=== PATIENT | female | born 1990 | race Caucasian/White ===

== ENCOUNTER 2021-02-11 09:12 | Outpatient (REF) | payer MEDICAID, SELFPAY ==
--- NOTE | ~2021-02-11 | XR_ITS ---
EXAMINATION: XR BILATERAL HAND/WRIST CLINICAL INFORMATION: Pain and bilateral hand. COMPARISON: None. TECHNIQUE: 4 views each hand. FINDINGS: RIGHT HAND: There is no visible acute fracture, dislocation or subluxation seen. The soft tissues are normal. The PIP, DIP and MCP joint space is normal. The soft tissues are normal. LEFT HAND: There is no visible acute fracture, dislocation or subluxation. The PIP, DIP and MCP joint spaces are normal. The soft tissues are normal. XR/XR hand wrist LT IMPRESSION: Unremarkable bilateral hand exam.
--- NOTE | ~2021-02-11 | XR_ITS ---
EXAMINATION: XR BILATERAL HAND/WRIST CLINICAL INFORMATION: Pain and bilateral hand. COMPARISON: None. TECHNIQUE: 4 views each hand. FINDINGS: RIGHT HAND: There is no visible acute fracture, dislocation or subluxation seen. The soft tissues are normal. The PIP, DIP and MCP joint space is normal. The soft tissues are normal. LEFT HAND: There is no visible acute fracture, dislocation or subluxation. The PIP, DIP and MCP joint spaces are normal. The soft tissues are normal. XR/XR hand wrist RT IMPRESSION: Unremarkable bilateral hand exam.
== END 2021-02-11 09:13 | disposition home or self-care (01) ==
LOC: HO.XRAY 09:12
PROVIDERS: PCP Nurse Practitioner Primary Care; Visit Provider Nurse Practitioner Primary Care
DX: M79.642 Pain in left hand (principal); M79.641 Pain in right hand
CPT/HCPCS: 73110; 73130

== ENCOUNTER 2021-10-01 07:12 | Outpatient (REF) | payer MEDICAID, SELFPAY ==
--- NOTE | ~2021-10-01 | XR_ITS ---
EXAMINATION: XR HAND, BILATERAL CLINICAL INFORMATION: Bilateral hand pain. COMPARISON: None TECHNIQUE: 3 views of right hand and 3 views of left hand. FINDINGS: Right Hand: There is no visible fracture, dislocation or subluxation. The PIP, DIP and MCP joint spaces are normal. The soft tissues are normal. Left Hand: The joint spaces are maintained normal. No fracture, dislocation or subluxation seen. The soft tissues are normal. XR/XR hand RT min 3V IMPRESSION: Unremarkable bilateral hand exam.
--- NOTE | ~2021-10-01 | XR_ITS ---
EXAMINATION: XR HAND, BILATERAL CLINICAL INFORMATION: Bilateral hand pain. COMPARISON: None TECHNIQUE: 3 views of right hand and 3 views of left hand. FINDINGS: Right Hand: There is no visible fracture, dislocation or subluxation. The PIP, DIP and MCP joint spaces are normal. The soft tissues are normal. Left Hand: The joint spaces are maintained normal. No fracture, dislocation or subluxation seen. The soft tissues are normal. XR/XR hand LT min 3V IMPRESSION: Unremarkable bilateral hand exam.
== END 2021-10-01 07:13 | disposition home or self-care (01) ==
LOC: HO.HOSX 07:12
PROVIDERS: Visit Provider Physician Assistant
DX: G56.03 Carpal tunnel syndrome, bilateral upper limbs (principal)
CPT/HCPCS: 73130; 99202

== ENCOUNTER 2021-10-09 08:38 | Outpatient (REF) | payer MEDICAID, SELFPAY ==
--- NOTE | 2021-10-09 08:48 | EMG_ITS ---
This is a woman with bilateral hand pain and numbness. PHYSICAL EXAMINATION: Neurological examination is normal. Deep tendon reflexes are symmetrical 2+. No Tinel sign. IMPRESSION: Rule out carpal tunnel syndrome. Nerve conduction EMG study: Normal electrodiagnostic study of both upper extremities with no evidence of carpal tunnel syndrome or nerve entrapment. Normal EMG of the left C5-T1 innervated muscles. MD BIANCA Escoto/BARBIE / [id number]
== END 2021-10-09 08:39 | disposition home or self-care (01) ==
LOC: HO.NEURO 08:38
PROVIDERS: Visit Provider Physician Assistant
DX: G56.03 Carpal tunnel syndrome, bilateral upper limbs (principal)
CPT/HCPCS: 95885; 95913

== ENCOUNTER → 2021-11-12 14:22 | Outpatient (BNVA) | payer MEDICAID, SELFPAY | PROVIDERS: PCP Nurse Practitioner Primary Care; Visit Provider Orthopaedic Surgery | DX: M79.641 Pain in right hand (principal); M79.642 Pain in left hand; M79.632 Pain in left forearm; M79.631 Pain in right forearm | CPT/HCPCS: 99212 ==

== ENCOUNTER 2022-05-13 15:40 | Outpatient (REF) | payer MEDICAID, SELFPAY ==
--- NOTE | ~2022-05-13 | US_ITS ---
EXAMINATION: US PELVIS CLINICAL INFORMATION: Dysmenorrhea COMPARISON: None TECHNIQUE: Ultrasound of the pelvis is performed using both transabdominal and transvaginal transducers along with Doppler. Transvaginal imaging is performed due to inadequate visualization transabdominally. FINDINGS: The uterus is heterogeneous and measures 8.0 x 3.9 x 5.9 cm. No discrete fibroids. Nabothian cysts present. Endometrial thickness is 0.5 cm. Visualization of ovaries limited. Right ovary seen only on transabdominal ultrasound images and left ovary better visualized on transabdominal ultrasound images. Right ovary measures 2.8 x 1.4 x 2.0 cm, volume 4.1 mL. Left ovary measures 2.8 x 2.1 x 1.7 cm, volume 5.2 mL. Bilateral ovaries are grossly unremarkable. US/US pelvic and transvaginal IMPRESSION: 1. No discrete fibroids. 2. Endometrial thickness 0.5 cm. 3. No significant free fluid. 4. Bilateral ovaries are grossly unremarkable, although visualization is limited. The heart
== END 2022-05-13 15:41 | disposition home or self-care (01) ==
LOC: HO.US 15:40
PROVIDERS: Visit Provider Advanced Practice Midwife
DX: N94.10 Unspecified dyspareunia (principal); N94.6 Dysmenorrhea, unspecified
CPT/HCPCS: 76830; 76856

== ENCOUNTER 2022-10-01 09:19 | Outpatient (REF) | payer MEDICAID, SELFPAY ==
[2022-10-04 03:48] LABS: HPV mRNA E6/E7 rflx Not Detected (Not Detected)
== END 2022-10-01 09:20 | disposition home or self-care (01) ==
LOC: HO.LNP 09:19
PROVIDERS: PCP Nurse Practitioner Primary Care; Visit Provider Obstetrics & Gynecology
DX: Z12.4 Encounter for screening for malignant neoplasm of cervix (principal); Z11.51 Encounter for screening for human papillomavirus (HPV); N93.9 Abnormal uterine and vaginal bleeding, unspecified; N93.0 Postcoital and contact bleeding
CPT/HCPCS: 0353U; 84443; 84702; 85027; 87624; 88142; 99202

== ENCOUNTER 2022-10-01 09:59 | Outpatient (REF) | payer MEDICAID, SELFPAY ==
[2022-10-01 13:05] LABS: Hematocrit 39.1 % (37.0-47.0); Hemoglobin 12.9 g/dl (12.0-16.0); Mean Corpuscular Hemoglobin 28.4 pg (27.0-33.0); Mean Corpuscular Volume 86.1 fL (80.0-98.0); Mean Platelet Volume 11.6 fL (9.4-12.3); Platelet Count 270 X10*3/uL (160-400); Red Blood Count 4.54 X10*6/uL (4.20-5.50); Red Cell Distribution Width 12.3 % (11.0-16.0); White Blood Count 4.9 X10*3/uL (4.8-10.8)
[2022-10-01 13:49] LABS: HCG Quantitative < 2 mIU/mL; TSH reflex Free T4 1.21 uIU/mL (0.32-4.0)
[2022-10-01 16:23] LABS: CT PCR NOT DETECTED (Not Detect.); NG PCR NOT DETECTED (Not Detect.)
== END 2022-10-01 10:00 | disposition home or self-care (01) ==
LOC: HO.LAB 09:59
PROVIDERS: PCP Nurse Practitioner Primary Care; Visit Provider Obstetrics & Gynecology
DX: Z11.3 Encounter for screening for infections with a predominantly sexual mode of transmission (principal); N93.9 Abnormal uterine and vaginal bleeding, unspecified
CPT/HCPCS: 0353U; 84443; 84702; 85027

== ENCOUNTER 2022-12-18 15:15 | Outpatient (REF) | payer MEDICAID, SELFPAY | END 2022-12-18 15:16 | disposition home or self-care (01) | LOC: HO.LNP 15:15 | PROVIDERS: PCP Nurse Practitioner Primary Care; Visit Provider Obstetrics & Gynecology | DX: N93.9 Abnormal uterine and vaginal bleeding, unspecified (principal); N93.0 Postcoital and contact bleeding | CPT/HCPCS: 58100; 88305 ==

== ENCOUNTER → 2022-12-30 07:57 | Outpatient (BNVA) | payer MEDICAID, SELFPAY | PROVIDERS: PCP Nurse Practitioner Primary Care; Visit Provider Obstetrics & Gynecology | DX: N93.9 Abnormal uterine and vaginal bleeding, unspecified (principal) | CPT/HCPCS: 99212 ==

== ENCOUNTER 2023-01-16 07:11 | Day surgery (SDC) | payer MEDICAID, SELFPAY ==
[2023-01-13 17:14] VITALS: BMI 25.6
--- NOTE | 2023-01-15 08:55 | P.CONAN_ITS ---
Documented by User: Vanessa Mills NP 01/15/23 08:55 HPI - Anesthesia Eval Consult details Narrative: 32yo F for D&C Hysteroscopy,Possible Myomectomy/Polypectomy PMFSH Active Problems Active Problems: All Active Problems (Updated 12/30/22 @ 08:22 by Ivan Eubanks MD) Postcoital bleeding (Acute) Abnormal uterine bleeding (Acute) Pain in both forearms (Acute) Bilateral hand pain (Acute) Bilateral carpal tunnel syndrome (Acute) Past Medical History Medical History Asthma Family History Family History Mother Diabetes HTN (hypertension) Uterus cancer Father HTN (hypertension) Other Lupus Surgical History Surgical History Hx of breast augmentation Hx of tubal ligation Social History Social History Household Members: Significant Other and Children Housing: House Alcohol intake: current Alcohol intake frequency: holidays/special occasions only Patient Tobacco Use Status: Never used Tobacco Use of substances other than those prescribed or required for medical reasons: No Are you DNR?: No Advance Directives: No Advance Directives Information Provided: Yes Current occupational status: employed Current occupation: school cafe/rt hand Sexual orientation: Straight/Heterosexual Gender identity: Female Meds Allergies Allergy/AdvReac Type Severity Reaction Status Date / Time No Known Allergies Allergy Unverified 12/30/22 07:59 [No Known Allergies*] Home Medications Medication Instructions Recorded Confirmed Last Taken Type No Known Home Meds 10/01/21 10/01/21 Unknown History Exam Exam Date and Time: January 15, 2023 0855 Height,Weight and Vital Signs: Height 5 ft 6 in Weight 71.979 kg Assessment and Plan Assessment Anesthesia Assessment: Chart Reviewed Documented by User: Cezar Aguilar MD 01/16/23 07:46 [facility] Past Medical History Medical History Asthma Family History Family History Mother Diabetes HTN (hypertension) Uterus cancer Father HTN (hypertension) Other Lupus Family history of problems with anesthesia: No Surgical History Surgical History Hx of breast augmentation Hx of tubal ligation History of Problems with Anesthesia: No Social History Social History Household Members: Significant Other and Children Housing: House Alcohol intake: current Alcohol intake frequency: holidays/special occasions only Patient Tobacco Use Status: Never used Tobacco Use of substances other than those prescribed or required for medical reasons: No Are you DNR?: No Advance Directives: No Advance Directives Information Provided: Yes Current occupational status: employed Current occupation: school cafe/rt hand Sexual orientation: Straight/Heterosexual Gender identity: Female Meds Allergies Allergy/AdvReac Type Severity Reaction Status Date / Time No Known Allergies Allergy Unverified 12/30/22 07:59 [No Known Allergies*] Home Medications Medication Instructions Recorded Confirmed Last Taken Type No Known Home Meds 10/01/21 10/01/21 Unknown History Exam Airway Mallampati Class: III TM Dist: >3cm Neck ROM: Full Assessment and Plan Assessment Anesthesia Assessment: Anesthesia Plan Discussed Final Anesthetic Review Family History of Problems with Anesthesia: No History of Problems with Anesthesia: No NPO: Yes ASA Class: I Final Preanesthetic Review: No Changes in Pt Med Stat, Meds/Allgs Chart Reviewed, Consent Obtained/Reviewed and Anes Risks/Benef Reviewed Patient Risk: Low Procedure Risk: Low Anesthetic Plan Anesthetic Plan: GA Disposition: Standard PACU
[2023-01-16] VITALS (7 sets, daily range): BP systolic 119–125; BP diastolic 69–76; PULSE 64–97; RESP 16; TEMP 36.1–36.4; O2SAT 97–100
--- NOTE | 2023-01-16 07:33 | MHC.SHP ---
Pre-Procedural Eval Section A Date of Service: 01/16/23 The patient is an INPATIENT: No Changes since office visit: No Cold of Flu in the past 2 weeks, No New Medical Problems, No Changes in Medication and No Patient answered all questions The History & Physical has been completed within 30 days and I have reviewed it.: Yes Section B Chief Complaint: Abnormal uterine and vaginal bleeding, unspecified Allergies: Allergies Allergy/AdvReac Type Severity Reaction Status Date / Time No Known Allergies Allergy Unverified 12/30/22 07:59 [No Known Allergies*] Plan Diagnosis/Plan: Unchanged I have reviewed the history and physical and performed a pertinent physical examination on my patient. No changes have occurred unless specified. Time Spent With Patient Time: Total time managing care of this patient today ____ minutes.
[2023-01-16 07:36] LABS: UPreg QC Valid YES; Urine Pregnancy NEGATIVE (NEGATIVE)
[2023-01-16] MEDS: Lactated Ringers 1,000 ML 100 ML IVCONT (07:37)
--- NOTE | 2023-01-16 08:47 | P.CONAN_ITS ---
FORM[facility], [facility]–1983 Active Problems Active Problems: All Active Problems (Updated 12/30/22 @ 08:22 by Ivan Eubanks MD) Postcoital bleeding (Acute) Abnormal uterine bleeding (Acute) Pain in both forearms (Acute) Bilateral hand pain (Acute) Bilateral carpal tunnel syndrome (Acute) Past Medical History Medical History Asthma Family History Family History Mother Diabetes HTN (hypertension) Uterus cancer Father HTN (hypertension) Other Lupus Family history of problems with anesthesia: No Surgical History Surgical History Hx of breast augmentation Hx of tubal ligation History of Problems with Anesthesia: No Social History Social History Household Members: Significant Other and Children Housing: House Alcohol intake: current Alcohol intake frequency: holidays/special occasions only Patient Tobacco Use Status: Never used Tobacco Use of substances other than those prescribed or required for medical reasons: No Are you DNR?: No Advance Directives: No Advance Directives Information Provided: Yes Current occupational status: employed Current occupation: school cafe/rt hand Sexual orientation: Straight/Heterosexual Gender identity: Female Meds Allergies Allergy/AdvReac Type Severity Reaction Status Date / Time No Known Allergies Allergy Unverified 12/30/22 07:59 [No Known Allergies*] Active Medications: Current Medications Albuterol Sulfate (Albuterol Sulfate (0.083%) 2.5 Mg/3 Ml Vial.Neb) 2.5 mg INHALE ONCE PRN PRN Reason: Shortness of Breath/Wheezing Lactated Ringer's (Lr) 1,000 mls @ 100 mls/hr IVCONT .Q10H ABDIEL Last Admin: 01/16/23 07:37 Dose: 100 mls/hr Home Medications Medication Instructions Recorded Confirmed Last Taken Type No Known Home Meds 10/01/21 10/01/21 Unknown History Exam Exam Date and Time: January 16, 2023 0847 Height,Weight and Vital Signs: Height 5 ft 6 in Weight 71.979 kg Last Vital Signs Temp 97.6 F 01/16/23 07:29 Pulse 97 01/16/23 07:29 Resp 16 01/16/23 07:29 BP 125/72 01/16/23 07:29 Pulse Ox 97 01/16/23 07:29 O2 Del Method Room Air 01/16/23 07:29 Pertinent Lab Results Pertinent Lab Results: Laboratory Tests 01/16/23 07:15 Urine Test NEGATIVE Airway Mallampati Class: III Assessment and Plan Final Anesthetic Review Family History of Problems with Anesthesia: No History of Problems with Anesthesia: No
--- NOTE | 2023-01-16 08:53 | P.BOP_ITS ---
Brief Operative Note Date of Service: 01/16/23 Pre-op diagnosis: Abnormal uterine bleeding, endometrial polyp by pathology Post-op diagnosis: same (Normal uterine cavity with no evidence of pathology) Procedure: Hysteroscopy D&C, Polypectomy Surgeon: Ivan Eubanks MD Anesthesia: GLMA Was an Marketing Programs Manager used for this Procedure?: No Estimated blood loss (mL): 0 Pathology: other (Endometrial Scrapping. ) Condition: stable Disposition: PACU
--- NOTE | 2023-01-16 08:54 | W.PM.OPN ---
Operative Note Operative Note Date of Service: 01/16/23 Narrative: Preop Diagnosis: Abnormal uterine bleeding, endometrial polyp on pathology Operation: Diagnostic Hysteroscopy, Dilataion & Curettage Post Op Diagnosis: Normal endometrial and endocervical cavity, no evidence of pathology QBL: Minimal Anesthesia: GLMA Surgeon: Ivan Eubanks MD Refrigerator Car Icer: None Complication: None Pathology: Endometrial Scrapings Procedure: The patient was put in the dorsal lithotomy position, scrubbed, and draped in the usual manner. A sterile speculum was inserted in the patient's vagina. The anterior lip of the cervix was grasped with a single tooth tenaculum. The cervix was dilated up to 5 mm, then the scope was inserted in the patient's uterus. Inspection revealed normal endocervical & endometrial cavity with no evidence of pathology. The scope was taken out of the uterine cavity , then sharp curetting was carried on with no complications. At the end of the procedure, all instruments were taken out of the patient uterine and vaginal cavity. The single tooth tenaculum was removed and homeostasis was assured using pressure. The patient tolerated the procedure well and was transferred to the PACU in a stable condition.
[2023-01-16] MEDS: oxyCODONE HCl Immed Release 5 MG TABLET PO (09:41)
[2023-01-16] MEDS: Acetaminophen 325 MG TABLET 650 MG PO (09:41)
== END 2023-01-16 10:45 | disposition home or self-care (01) ==
PROVIDERS: PCP Nurse Practitioner Primary Care; Visit Provider Obstetrics & Gynecology
PROC: 0UDB8ZZ Extraction of Endometrium, Via Natural or Artificial Opening Endoscopic (ICD-10-PCS; CPT 58558; principal; 2023-01-16 08:30)
DX: N93.9 Abnormal uterine and vaginal bleeding, unspecified (principal); J45.909 Unspecified asthma, uncomplicated; Z98.51 Tubal ligation status
CPT/HCPCS: 58558; 81025; 88305; J1100; J2250; J2405; J3010

== ENCOUNTER 2023-03-30 12:53 | Outpatient (AMB) | payer MEDICAID, SELFPAY ==
--- NOTE | 2023-03-30 12:58 | A.OFFVIS_ITS ---
Intake Vital Signs 03/30/23 12:59 Height 5 ft 6 in Weight 160 lb BMI 25.8 BP 122/74 Intake Visit Reasons: post op Test And Balance Engineer Required: Yes Test And Balance Engineer Language: Electric Lineman Name: Jossie MORA Allergies No Known Allergies [No Known Allergies*] Allergy (Verified 03/30/23 12:59) Is last menstrual period known: Yes Last menstrual period: 03/30/23 Post menopausal: No HPI HPI Comments History of Present Illness Details The patient is presenting post hysteroscopy D&C no complaints minimal vaginal bleeding no feverishness chills or abdominal pain. The pathology showed the following: Endometrium, curettage: - Inactive endometrium with patchy breakdown; no atypia or hyperplasia identified. - Few fragments of endocervical and squamous epithelium within normal limits. The following workup was done.: H&H= 12.9/39.1 TSH, hCG, GC and chlamydia were negative. Co testing was done was negative. Pelvic ultrasound showed the following: 'IMPRESSION: ? 1. No discrete fibroids. ? 2. Endometrial thickness 0.5 cm. ? 3. No significant free fluid. ? 4. Bilateral ovaries are grossly unremarkable, although visualization is limited. [facility] Medical History Asthma Surgical History Hx of breast augmentation Hx of tubal ligation Family History Mother Diabetes HTN (hypertension) Uterus cancer Father HTN (hypertension) Other Lupus Social History Household Members: Significant Other and Children Housing: House Alcohol intake: current Alcohol intake frequency: holidays/special occasions only Patient Tobacco Use Status: Never used Tobacco Current occupational status: employed Current occupation: school cafe/rt hand Sexual orientation: Straight/Heterosexual Gender identity: Female Female Reproductive History Menstrual Age of Menarche: 9 Date of last menstrual period: 03/30/23 control method: permanent sterilization Date of last pap smear: 10/01/22 (negative) Review of Systems Const All systems reviewed & are unremarkable except as noted in HPI and below Reports as per HPI and Reports no additional complaints GI Reports no additional complaints Reports no additional complaints Physical Exam Vital Signs: Last Vital Signs BP 122/74 03/30/23 12:59 BMI result Body Mass Index 25.8 Assessment & Plan Assessment & Plan (1) Abnormal uterine bleeding: Comment: With postcoital bleed Code(s): N93.9 - Abnormal uterine and vaginal bleeding, unspecified Plan: Discussed with the patient the results of the work up done and options of treatment includingBCP's, Mirena IUD, endometrial ablation and cyclic Provera. All pros, cons, risks and benefits if each option was discussed with the patient and the patient decided to think about it and get back to us. All questions answered the patient verbalized understanding. Coding Level of Care Code Est Pt Level 3 (23548) Diagnoses Abnormal uterine bleeding N93.9
[2023-03-30 12:59] VITALS: BP 122/74; BMI 25.8
== END 2023-03-30 13:32 | disposition home or self-care (01) ==
LOC: HO.HWS 12:53
PROVIDERS: PCP Nurse Practitioner Primary Care; Visit Provider Obstetrics & Gynecology
DX: N93.9 Abnormal uterine and vaginal bleeding, unspecified (principal)
CPT/HCPCS: 99213

== ENCOUNTER → 2023-03-30 12:53 | Outpatient (BNVA) | payer MEDICAID, SELFPAY | PROVIDERS: PCP Nurse Practitioner Primary Care; Visit Provider Obstetrics & Gynecology | DX: N93.9 Abnormal uterine and vaginal bleeding, unspecified (principal) | CPT/HCPCS: 99212 ==

== ENCOUNTER 2023-11-03 13:41 | Outpatient (AMB) | payer MEDICAID, SELFPAY ==
--- NOTE | 2023-11-03 13:48 | A.OFFVIS_ITS ---
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 No complaints. Last Pap/HPV was negative in 10/09 [facility] Medical History Asthma Surgical History Hx of cosmetic surgery Hx of tubal ligation Hx of breast augmentation Family History Mother Diabetes HTN (hypertension) Uterus cancer Father HTN (hypertension) Other Lupus Social History Household Members: Significant Other and Children Housing: House Alcohol intake: current Alcohol intake frequency: holidays/special occasions only Patient Tobacco Use Status: Never used Tobacco Current occupational status: employed Current occupation: school cafe/rt hand Sexual orientation: Straight/Heterosexual Gender identity: Female Female Reproductive History Menstrual Age of Menarche: 9 Duration of menses: other Date of last menstrual period: 10/06/23 control method: permanent sterilization Total pregnancies: 2 Full term: 2 Number of Living Children: 2 Date of last pap smear: 10/01/22 (negative) Review of Systems Const All systems reviewed & are unremarkable except as noted in HPI and below Card Reports as per HPI Resp Reports as per HPI GI Reports as per HPI and Reports no additional complaints Reports as per HPI Physical Exam Vital Signs: Last Vital Signs BP 130/74 11/03/23 13:50 BMI result Body Mass Index 26.1 Const General: cooperative, healthy appearing and comfortable Chest Chest palpation & inspection: normal inspection of the chest and normal palpation of entire chest wall Breast/axilla inspection: normal inspection of the breasts and normal inspection of the axillae Breast/axilla palpation: normal palpation of the breasts, normal palpation of the axillae and no axillary lymphadenopathy Resp Effort & Inspection: normal respiratory effort Auscultation: clear to auscultation bilaterally Percussion: percussion normal Cardio Palpation: normal PMI Rate: regular rate Rhythm: regular rhythm Heart sounds: no murmurs and no rubs Peripheral pulses: Peripheral pulses 2+ throughout GI Inspection: Yes normal to inspection Palpation (GI): Soft to palpation, nontender, no guarding, not rigid and No hepatosplenomegaly present Percussion: Yes normal to percussion Auscultation: normal bowel sounds Rectal Exam - Female: deferred General: Yes bladder normal to palpation External Female Exam: No lesion Speculum Exam - Vagina: normal appearance of the vagina, normal palpation, normal vaginal discharge and not erythematous Speculum Exam - Cervix: normal appearance of the cervix and normal palpation Bimanual exam- vagina & uterus: normal bimanual exam, normal palpation, uterine size normal, bladder normal to palpation, consistency normal and normal palpation Bimanual Exam- Adnexa, other: normal adnexae, no masses and no tenderness Assessment & Plan Assessment & Plan (1) Well woman exam: Code(s): Z01.419 - Encounter for gynecological examination (general) (routine) without abnormal findings Plan: Cotesting not indicated this year. Counseled the patient about the recommended dietary allowance of 1000 mg of Calcium & 600 IU of vitamin D. The patient was instructed to perform monthly self-breast exams and to schedule an annual exam in a year; All questions answered and the patient verbalized understanding. Instructed the patient to schedule annual exam in a year Coding Level of Care Code Est Pt Prev Care 18-39y(93026) Diagnoses Well woman exam Z01.419
[2023-11-03 13:50] VITALS: BP 130/74; BMI 26.1
== END 2023-11-03 14:15 | disposition home or self-care (01) ==
PROVIDERS: PCP Nurse Practitioner Primary Care; Visit Provider Obstetrics & Gynecology
DX: Z01.419 Encounter for gynecological examination (general) (routine) without abnormal findings (principal)
CPT/HCPCS: 99395

== ENCOUNTER → 2023-11-03 13:41 | Outpatient (BNVA) | payer MEDICAID, SELFPAY | PROVIDERS: PCP Nurse Practitioner Primary Care; Visit Provider Obstetrics & Gynecology | DX: Z01.419 Encounter for gynecological examination (general) (routine) without abnormal findings (principal) | CPT/HCPCS: 99395 ==

== ENCOUNTER 2024-10-26 08:07 | Outpatient (REF) | payer MEDICAID, SELFPAY ==
--- OUTSIDE RECORDS SUMMARY | 2024-10-26 08:12 | XMS_ITS | Clinical Summary ---
Author Organization [employer] Address [address] [facility] 7t [place] [address] Care Team Providers Care Tower Technician Name Role Phone Alberto Carrasco Primary Care Provider [phone] Allergies No known active allergies Medications fluticasone (Flonase) 50 MCG/ACT nasal sprayIndications: Cough in adult patient,Laryngiti s SPRAY 1 SPRAY INTO EACH NOSTRIL IN THE MORNING 48 mL 3 Active albuterol 108 (90 Base) MCG/ACT inhalerIndication s:Mild intermittent asthma with exacerbation Inhale 2 puffs every 6 (six) hours if needed for wheezing. 18 g 1 4 06/10/20 25 Active Active Problems Problem Noted Date Diagnosed Date Mild intermittent asthma with exacerbation 06/10 Abnormal uterine bleeding 05/19/2023 Bilateral carpal tunnel syndrome 05/19/2023 Overview (03/25/2024): No bony abnormalities on B/L hand XR 02/13/21 Negative EMG Pain in both forearms 05/19/2023 Postcoital bleeding 05/19/2023 Encounters Date Type Department Care Team Description 10/14/2024 2:30 PM EST Office Visit [facility] [address] [place] [address] Alberto Carrasco ANP Irregular menses (Primary Dx); Dietary counseling; Exercise counseling; Mild intermittent asthma with exacerbation; Healthcare maintenance 10/14/2024 Telephone [facility] [address] [place] [address] Alberto Carrasco ANP 10/14/2024 Travel 10/06/2024 9:15 AM EST Office Visit [facility] [address] [place] [address] Acosta Cashn, OD Regular astigmatism of both eyes (Primary Dx) 09/30/2024 Patient Outreach [facility] [address] [place] [address] Alberto Carrasco ANP Pre-visit Planning (Pre-visit planning - LVM ) 08/30/2024 3:00 PM EST Office Visit [facility] [address] [place] [address] Acosta Cashn, OD White without pressure of peripheral retina of both eyes (Primary Dx); Meibomian gland dysfunction; Regular astigmatism of both eyes 08/30/2024 Travel 08/15/2024 Telephone [facility] [address] [place] [address] Katey Kitchen [place] September recall from Last 3 Months Immunizations Name Administration Dates Next Due Influenza injectable quadriv alent IIV4 with preservative 06/09/2018 Moderna Covid-19 Vaccine 12+ 01/28/2021,01/01/20 21 Tdap 10/14/2024 Family History Medical History Relation Name Comments Hypertension Father Arthritis Mother Diabetes Mother Hypertension Mother Psoriasis Mother Uterine cancer Mother Relation Name Status Comments Father Mother Social History Tobacco Use Types Packs/Day Years Used Date Smoking Tobacco: Never Smokeless Tobacco: Never Tobacco Cessation:Counseling Given: Not Answered Depression Answer Date Recorded Patient Health Questionnaire-9 Score 20 10/14/2024 Patient Health Questionnaire-9 Score 20 10/14/2024 Last PHQ-9: Questionnaire Data Not on file 0 10/14/2024 Housing Stability Answer Date Recorded What is your housing situation today? I have quique stern 03/08/[address] you li ve. Do you have problems with any of the following? None of the above 03/08/2024 Food Insecurity Answer Date Recorded Within the past 12 months, y ou worried that your food would run out before you got money to buy more: Never True 03/08/2024 Within the past 12 months,th e food you bought just didn't last and you didn't have enough money to get more: Never True Transportation Answer Date Recorded In the past 12 months, has l ack of transportation kept you from medical appts, meetings, work or from getting things needed for daily living? No 03/08/2024 Utilities Answer Date Recorded In the past 12 months, has t he electric, gas, oil or water company threatened to shut off services in your home? No 03/08/2024 Depression Answer Date Recorded Patient Health Questionnaire-2 Score 5 10/14/2024 Internet Access Answer Date Recorded Internet Access Q1 Yes 04/18/2024 Internet Access Q2 Not on file 04/18/2024 Comments Unknown Sex and Gender Information Value Date Recorded Sex Assigned at Female 06/16/2022 10:33 AM EDT Legal Sex Female 10:33 AM EDT Gender Identity Female 06/16/2022 10:33 AM EDT Sexual Orientation Straight 06/16/2022 10 :33 AM EDT Last Filed Vital Signs Vital Sign Reading Time Taken Comments Blood Pressure 135/81 10/14/2024 2:51 PM EST Pulse 97 10/14/2024 2:51 PM EST Temperature 36.2 ??C (97.2 ??F) 10/14/2024 2:51 PM ES T Respiratory Rate 22 10/14/2024 2:51 PM EST Oxygen Saturation 99% 06/10/2024 11: 21 AM EDT Inhaled Oxygen Concentration - - Weight 80.6 kg (177 lb 12.8 oz) 10/14/2024 2:51 PM EST Height 167.6 cm (5' 6 ) 07/07/2024 11:3 8 AM EST Body Mass Index 28.7 07/07/2024 11:38 AM EST Plan of Treatment Upcoming Encounters Date Type Department Care Team (Late st Contact Info) Description 12/19/2024 11:00 AM EDT Telemedicine [facility] [address], [place] [phone] Alberto Carrasco ANP [address] [place] [address] Health Maintenance Due Date Last Done Comments Family Planning (PISQ) 2005 Hepatitis B Vaccines (1 of 3 - 19+ 3-dose series) 2009 Pneumococcal Vaccine: Pediatrics (0 to 5 Years) and At-Risk Patients (6 to 49) Years) (1 of 2 - PCV) 2009 Dental Oral Exam 06/05/2018 12/03/2017 Dental Prophylaxis 01/26/2019 07/27/2018 Dental X-Ray: Full Mouth 12/04/2020 12/03/2017 Dental X-Ray: Bitewings 05/16/2021 05/15/20 20, 12/03/2017 COVID-19 Vaccine (3 - 2023-2 5 season) 2024 01/28/2021, 12/31/2020 Influenza Vaccine (#1) 2024 06/09/2018 SDOH Screening 03/08/2025 03/08/2024 Depression Monitoring (PHQ-9) 04/13/2025, 10/14/2024 Pap Smear 10/01/2025 10/01/2022, 03/13/2021, 03/13/2021 Alcohol/Substance Use Screening 10/14/2025 10/14/2024 Depression Screening 10/14/2025 10/14/2024, 10/14/2024 Tobacco Screening 10/14/2025 10/14/2024 Cervical Cancer Screening 10/01/2027 HPV/Cotest 10/01/2027 10/01/2022, 03/13/2021 DTaP/Tdap/Td Vaccines (2 - T d or Tdap) 10/14/2034 10/14/2024 Zoster Vaccines (1 of 2) 2040 RSV Patients and Patients Aged 60 years or older (1 - 1-dose 75+ series) 2065 Hepatitis C Screening Completed 01/29/2021 HIV Screening Completed 11/20/2021, 01/29/2021 HIB Vaccines Aged Out No longer eligi ble based on patient's age to complete this topic HPV Vaccines Aged Out No longer eligi ble based on patient's age to complete this topic Hepatitis A Vaccines Aged Out No long er eligible based on patient's age to complete this topic IPV Vaccines Aged Out No longer eligi ble based on patient's age to complete this topic Meningococcal Vaccine Aged Out No terrell nolan eligible based on patient's age to complete this topic RSV under 20 months Aged Out No longe r eligible based on patient's age to complete this topic Rotavirus Vaccines Aged Out No longer eligible based on patient's age to complete this topic Procedures Procedure Name Priority Date/Time Associated Diagnosis Comments HPV MRNA E6/E7 REFLEX TO HPV 16, 18/45 Routine 10/01/2022 9:47 AM EST PAP SMEAR Routine 10/01/2022 9:47 AM EST HIV 1/2 ANTIGEN/ANTIBODY, FOURTH GENERATION W/RFL Routine 11/20/2021 8:01 AM EDT ZZZ HISTORICAL HEPATITIS C AB W/REFL TO HCV RNA, QN, PCR Routine 01/29/2021 10:01 AM EDT BITEWING - SINGLE RADIOGRAPHIC IMAGE Routine 05/15/2020 12:00 AM EDT PROPHYLAXIS - ADULT Routine 07/27/2018 1 2:00 AM EST INTRAORAL - COMPLETE SERIES OF RADIOGRAPHIC IMAGES Routine 12/03/2017 12:00 AM EDT COMPREHENSIVE ORAL EVALUATION - NEW OR ESTABLISHED PATIENT Routine 12/03/2017 12:00 AM EDT from Last 3 Months or Most Recently Relevant to Health Maintenance Results * HPV mRNA E6/E7 w/Reflex to HPV Genotypes 16, 18/45 (10/01/2022 9:47 AM EST) HPV nRNA E6/E7 Not Detected Not Detected [facility] Comment:Methodology: Transcr iption-Mediated AmplificationThis assay detects E6/E7 viral messenger RNA (mRNA) from 14high-risk HPV types (16,18,31,33,35,39,45,51,52,56,58,59,66,68).Cervical sources are required for HPV testing.If a vaginal source from a patient who has had atotal hysterectomy with removal of cervix wassubmitted, please contact the testing laboratoryfor alternative testing options.For additional information, please refer tohttp://education.Motionbox/faq/BHI417s7(This link if provided for information/educational purposes only.)THIS TEST WAS PERFORMED AT:[facility] [place] [id number] COTTON MD HPV mRNA E6/E7 TNP [facility] HPV 16 RNA TNP [facility] HPV 18/45 RNA TNP [facility] 10/01/2022 9:47 AM EST 10/01/2022 3:45 PM EST us [facility] External Provider LAB CYT OLOGY ORDERABLES Final Result [facility] [address] [place] [phone] * Pap Smear (10/01/2022 9:47 AM EST) 10/01/2022 9:47 AM EST 10/01/2022 3:45 PM EST Narrative [facility] - 10/05/2022 4:02 PM EST ----- ------- Name: Alyse Dowling ?Age/Sex: 31/F ? : 1990 Unit#: [id number] ?? Attend Dr: Ivan Eubanks MD ?Re10/01/22 ?Status: DEP REF ? Location: HO.LNP ?Disch: ? ----- ------- SPEC : [id number] ? RECD: 10/01/22 ? STATUS: ??SOUT ? REQ NUM: [id number] ? JAZMÍN: 10/01/22 ? SUBM DR: Ivan Eubanks MD ? ENTERED: ??10/01/22 ?SP TYPE: Pap Smr ?OTHR DR: ALBERTO CARRASCO NP ? ORDERED: ??Pap Smear ? Interpretation ?? Satisfactory for evaluation. ?? Negative for intraepithelial lesion or malignancy. ?? Fungal organisms consistent with Estela species. ? HPV mRNA E6/E7: ?NOT DETECTED ? This assay detects E6/E7 viral messenger RNA (mRNA) from 14 high-risk HPV types (16, 18, ?? 31, 33, 35, 39, 45, 51, 52, 56, 58, 59, 66, 68) ? HPV testing performed by [facility], [place], [place]. ??See reference laboratory ?? portion of the EMR for entire report. ?Clinical Information LMP: 09/04/2022 Previous PAP test: 2 yrs ago, Unknown ? Material Received ?? ThinPrep-Cervical Copies To: ?? ALBERTO CARRASCO NP ?? [address] [place] [address] ?? [place] [address] ?? [phone] ?? Ivan Eubanks MD ?? [address] [facility] ?? [place] [address] ?? [phone] ----- ------- Signed (signature on file) Debbie Cancino Nati 10/05/221601 ? ----- ------- ? END OF REPORT ? [facility] External Provider LAB CYT OLOGY ORDERABLES Final Result [facility] [address] [facility] [place] [address] [phone] * HIV 1/2 ANTIGEN/ANTIBODY,FOURTH GENERATION W/RFL (11/20/2021 8:01 AM EDT) [facility] HIV-1/2 ANTIGEN AND ANTIBODIES, 4TH GENERATION W/ REFLEX NON-REACT RODDY NON-REACT RODDY [facility] Comment: HIV-1 antigen and HIV-1/HIV-2 antibodies were not detected. There is no laboratory evidence of HIV infection. ?? PLEASE NOTE: This information has been disclosed to you from records whose confidentiality may be protected by state law. ??If your state requires such protection, then the state law prohibits you from making any further disclosure of the information without the specific written consent of the person to whom it pertains, or as otherwise permitted by law. A general authorization for the release of medical or other information is NOT sufficient for this purpose. ? For additional information please refer to http://Curbside/faq/ZKA704 (This link is being provided for informational/ educational purposes only.) ? The performance of this assay has not been clinically validated in patients less than 2 years old. ?? 11/20/2021 8:01 AM EDT us Alberto Carrasco ANP LAB BLOOD ORDERABLES Final Resul t Performing Organization Address [facility] Number [facility] [address] * HEPATITIS C AB W/REFL TO HCV RNA, QN, PCR (01/29/2021 10:01 AM EDT) HEPATITIS C ANTIBODY NON-REACT RODDY NON-REACT RODDY [facility] INDEX 0.02 <1.00 [facility] Comment: ?? HCV antibody was non-reactive. There is no laboratory ?? evidence of HCV infection. ?? In most cases, no further action is required. However, if recent HCV exposure is suspected, a test for HCV RNA (test code 27835) is suggested. ?? For additional information please refer to http://[employer].Motionbox/faq/GDD00t7 (This link is being provided for informational/ educational purposes only.) ?? 01/29/2021 10:0 1 AM EDT us Alberto Carrasco ANP HISTORICAL/NON ORDERABLE LABS Fi nal Result Performing Organization Address [facility] Number [facility] [address] from Last 3 Months or Most Recently Relevant to Health Maintenance Insurance [address] [place] [facility] MEDICAID STAND ADULT Care Teams Tower Technician Relationship Specialty Start Date End Date Alberto Carrasco ANP [address] [place] [phone] PCP - General Family Medicine 02/03/20
--- OUTSIDE RECORDS SUMMARY | 2024-10-26 08:12 | XMS_ITS | Encounter Summary ---
Author Organization [employer] Address [address] [facility] 7t [place] [address] Care Team Providers Care Courier Delivery Driver Name Role Phone Nandini Wall Primary Care Provider [phone] Reason for Visit * Reason Comments Pre-visit Planning Pre-visit planning - LVM Encounter Details Date Type Department Care Team ([facility] st Contact Info) Description 09/30/2024 Patient Outreach [facility] [address] [place], [place] [phone] Nandini Wall ANP [address] [place], [place] [phone] Pre-visit Planning (Pre-visit planning - LVM ) Social History Tobacco Use Types Packs/Day Years Used Date Smoking Tobacco: Never Smokeless Tobacco: Never Housing Stability Answer Date Recorded What is [...] off services in your home? No 03/08/2024 Internet Access Answer Date Recorded Internet Access Q1 Yes 04/18/2024 Internet Access Q2 Not on file 04/18/2024 Comments Unknown Sex and Gender Information Value Date Recorded Sex Assigned at Female 06/16/2022 10:33 AM EDT Legal Sex Female 10:33 AM EDT Gender Identity Female 06/16/2022 10:33 AM EDT Sexual Orientation Straight 06/16/2022 10 :33 AM EDT documented as of this encounter Progress Notes * Toya Singer - 09/30/2024 12:48 PM EST RONALDO Espinal placed outbound call to patient to complete pre-visit planning. No answer at this time. Patient name and were not confirmed. CC left voicemail requesting return call. Direct contact information provided. documented in this encounter Plan of Treatment Upcoming Encounters Date Type Department Care Team (Late st Contact Info) Description 12/19/2024 11:00 AM EDT Telemedicine [facility] [address] [place] [address] Nandini Wall ANP [address] [place] [address] documented as of this encounter Visit Diagnoses Not on filedocumented in this encounter Care Teams Courier Delivery Driver Relationship Specialty Start Date End Date Nandini Wall ANP [address] [place] [phone] PCP - General Family Medicine 02/03/20 documented as of this encounter
--- OUTSIDE RECORDS SUMMARY | 2024-10-26 08:12 | XMS_ITS | Encounter Summary ---
Author Organization [employer] Address [address] [facility] 7t [place] [address] Care Team Providers Care Financial Counselor Name Role Phone Nandini Wall Primary Care Provider [phone] Encounter Details Date Type Department Care Team ([facility] st Contact Info) Description 10/14/2024 2:30 PM EST Office Visit [facility] [address] [place], [place] [phone] Nandini Wall ANP [address] [place], [place] [phone] Irregular menses (Primary Dx); Dietary counseling; Exercise counseling; Mild intermittent asthma with exacerbation; Healthcare maintenance Social History Tobacco Use Types Packs/Day Years Used Date Smoking Tobacco: Never Smokeless Tobacco: Never Depression Answer Date Recorded Patient Health Questionnaire-9 [...] AM EDT documented as of this encounter Last Filed Vital Signs Vital Sign Reading Time Taken Comments Blood Pressure 135/81 10/14/2024 2:51 PM EST Pulse 97 10/14/2024 2:51 PM EST Temperature 36.2 ??C (97.2 ??F) 10/14/2024 2:51 PM ES T Respiratory Rate 22 10/14/2024 2:51 PM EST Oxygen Saturation - - Inhaled Oxygen Concentration - - Weight 80.6 kg (177 lb 12.8 oz) 10/14/2024 2:51 PM EST Height - - Body Mass Index 28.7 07/07/2024 11:38 AM EST documented in this encounter Plan of Treatment Upcoming Encounters Date Type Department Care Team (Late st Contact Info) Description 12/19/2024 11:00 AM EDT Telemedicine [facility] [address] [place] [address] Nandini Wall ANP [address] [place] [address] Scheduled Orders Name Type Priority Associated Diagnoses Orde r Schedule TSH W/Reflex to FT4 Lab Routine Irregular menses Expected: 10/14/2024 (Approximate), Expires: 10/14/2025 CBC auto differential Lab Routine Healthcare maintenance Expected: 10/14/2024 (Approximate), Expires: 10/14/2025 Vitamin D, 25-Hydroxy, Total, Immunoassay Lab Routine Healthcare maintenance Expected: 10/14/2024 (Approximate), Expires: 10/14/2025 Lipid Panel, Standard Lab Routine Healthcare maintenance Expected: 10/14/2024 (Approximate), Expires: 10/14/2025 Comprehensive Metabolic Panel Lab Routine Healthcare maintenance Expected: 10/14/2024 (Approximate), Expires: 10/14/2025 documented as of this encounter Visit Diagnoses Diagnosis Irregular menses- Primary Irregular menstrual cycle Dietary counseling Dietary surveillance and counseling Exercise counseling Mild intermittent asthma with exacerbation Unspecified asthma, with exacerbation Healthcare maintenance documented in this encounter Additional Health Concerns Assessment Noted Time PHQ-9 Depression Total Score: 20 025 3:28 PM EST documented as of this encounter Care Teams Financial Counselor Relationship Specialty Start Date End Date Nandini Wall ANP [address] [place] [phone] PCP - General Family Medicine 02/03/20 documented as of this encounter
--- OUTSIDE RECORDS SUMMARY | 2024-10-26 08:12 | XMS_ITS | Encounter Summary ---
Author Organization [employer] Address [address] [facility] [facility] [address] 7t [place] [address] Care Team Providers Care Machine Cutter Name Role Phone Mae Nandini PACHECO Primary Care Provider [phone] Encounter Details Date Type Department Care Team (Latest Contact Info) Description 10/14/2024 Travel Social History Tobacco Use Types Packs/Day Years [...] AM EDT documented as of this encounter Plan of Treatment Upcoming Encounters Date Type Department Care Team (Late st Contact Info) Description 12/19/2024 11:00 AM EDT Telemedicine [facility] [address] [place] [address] Nandini aWll ANP [address] [place] [address] documented as of this encounter Visit Diagnoses Not on filedocumented in this encounter Additional Health Concerns Assessment Noted Time PHQ-9 Depression Total Score: 20 10/14/ 025 3:28 PM EST documented as of this encounter Care Teams Machine Cutter Relationship Specialty Start Date End Date Nandini Wall ANP [address] [place] [address] PCP - General Family Medicine 02/03/20 documented as of this encounter
--- OUTSIDE RECORDS SUMMARY | 2024-10-26 08:12 | XMS_ITS | Encounter Summary ---
Author Organization [employer] Address [address] [facility] [address] 7[address] [place] [address] Care Team Providers Care Sliver Former Name Role Phone Nandini Wall Primary Care Provider Encounter Details Date Type Department Care Team ([facility] st Contact Info) Description 10/06/2024 9:15 AM EST Office Visit [facility] [address] [place], [place] [phone] ShaileshCourtney, OD [address] [place] [address] Regular astigmatism of both eyes (Primary Dx) Social History Tobacco Use Types Packs/Day Years Used Date Smoking Tobacco: Never Smokeless Tobacco: Never Housing Stability Answer Date Recorded What is your housing situation today? I have quiquejani stern 03/08/[address] you [...] as of this encounter Progress Notes * Courtney Cash OD - 10/06/2024 9:15 AM EST MH glasses were dispensed. documented in this encounter Plan of Treatment Upcoming Encounters Date Type Department Care Team (Late st Contact Info) Description 12/19/2024 11:00 AM EDT Telemedicine [facility] [address] [place] [address] Nandini Wall ANP [address] [place] [address] documented as of this encounter Visit Diagnoses Diagnosis Regular astigmatism of both eyes- Primary documented in this encounter Care Teams Sliver Former Relationship Specialty Start Date End Date Nandini Wall ANP [address] [place] [phone] PCP - General Family Medicine 02/03/20 documented as of this encounter
--- OUTSIDE RECORDS SUMMARY | 2024-10-26 08:12 | XMS_ITS | Encounter Summary ---
Author Organization [employer] Address [address] [facility] [address] 7[address] [place] [address] Care Team Providers Care Chief Meteorologist Name Role Phone Nandini Wall Primary Care Provider [phone] Encounter Details Date Type Department Care Team ([facility] st Contact Info) Description 10/14/2024 Telephone [facility] [address] [place], [place] [phone] Nandini Wall ANP [address] [place], [place] [phone] Social History Tobacco Use Types Packs/Day Years [...] Info) Description 12/19/2024 11:00 AM EDT Telemedicine [facility] [address] [place] [address] Nandini Wall ANP [address] [place] [address] documented as of this encounter Visit Diagnoses Not on filedocumented in this encounter Additional Health Concerns Assessment Noted Time PHQ-9 Depression Total Score: 20 025 3:28 PM EST documented as of this encounter Care Teams Chief Meteorologist Relationship Specialty Start Date End Date Nandini Wall ANP [address] [place] [phone] PCP - General Family Medicine 02/03/20 documented as of this encounter
[2024-10-26 11:21] LABS: MANUAL DIFF FLAG NO
[2024-10-26 11:48] LABS: Basophils Percent Auto 0.5 % (0-2); Eosinophils Absolute Auto 0.3 X10*3/uL (0.0-0.4); Eosinophils Percent Auto 5.7 % (0-4); Hematocrit 39.1 % (37.0-47.0); Hemoglobin 13.2 g/dl (12.0-16.0); Imm Gran Abs Auto 0.01 X10*3/uL (0.00-0.03); Imm Gran Pct Auto 0.2 % (0.0-0.4); Lymphocytes Absolute Auto 1.8 X10*3/uL (1.2-4.9); Mean Corpuscular HGB Conc 33.8 g/dl (31.0-35.0); Mean Corpuscular Hemoglobin 28.5 pg (27.0-33.0); Mean Corpuscular Volume 84.4 fL (80.0-98.0); Mean Platelet Volume 11.3 fL (9.4-12.3); Monocytes Absolute Auto 0.3 X10*3/uL (0.1-1.2); Monocytes Percent Auto 7.3 % (2-11); Neutrophils Percent Auto 46.3 % (45-73); Platelet Count 287 X10*3/uL (160-400); Red Blood Count 4.63 X10*6/uL (4.20-5.50); Red Cell Distribution Width 12.2 % (11.0-16.0); White Blood Count 4.4 X10*3/uL (4.8-10.8)
[2024-10-26 12:23] LABS: Alanine Aminotransferase 36 U/L (0-31); Albumin Level 4.2 g/dL (3.5-5.0); Alkaline Phosphatase 92 U/L (39-117); Anion Gap 11 (12-20); Aspartate Amino Transferase 30 U/L (5-31); Bilirubin Total 0.3 mg/dL (0.0-1.0); Blood Urea Nitrogen 18 mg/dL (9-16); Calcium 9.1 mg/dL (8.4-10.2); Carbon Dioxide 25 mmol/L (22-29); Chloride 107 mmol/L (96-108); Cholesterol 152 mg/dL (<200); Estimated Glomerular Filt Rate > 60; Glucose Random 100 mg/dL (60-115); HDL Cholesterol 49 mg/dL (>40); LDL Cholesterol Calculated 89 mg/dL (<100); Potassium 4.1 mmol/L (3.3-5.1); Sodium 139 mmol/L (135-145); Total Protein 8.5 g/dL (6.5-8.0); Triglycerides 74 mg/dL (<150)
[2024-10-26 12:28] LABS: TSH reflex Free T4 0.94 uIU/mL (0.32-4.0); Vitamin D 25-OH Total 30.9 ng/mL (>30)
== END 2024-10-26 08:08 | disposition home or self-care (01) ==
LOC: HO.HHCL 08:07
PROVIDERS: Visit Provider Nurse Practitioner Primary Care
DX: Z00.00 Encounter for general adult medical examination without abnormal findings (principal); N92.6 Irregular menstruation, unspecified
CPT/HCPCS: 36415; 80053; 80061; 82306; 84443; 85025